=== PATIENT | male | born 1965 | race Caucasian/White ===

== ENCOUNTER 2020-01-11 22:49 | Emergency (ER) | payer OTHER ==
[~2020-01-11] VITALS: Ht 185.4 cm; Wt 69.9 kg
[2020-01-11 22:58] VITALS: Ht 185.4 cm; Wt 69.9 kg
[2020-01-12 00:23] VITALS: BP 109/62
== END 2020-01-12 00:23 | disposition home or self-care (01) ==
LOC: ED 22:49
DX: L73.1 Pseudofolliculitis barbae (principal); L30.9 Dermatitis, unspecified; F17.210 Nicotine dependence, cigarettes, uncomplicated; Z98.890 Other specified postprocedural states; Z90.49 Acquired absence of other specified parts of digestive tract
CPT/HCPCS: 99406